=== PATIENT | male | born 1995 | race Caucasian/White ===

== ENCOUNTER 2018-08-23 09:50 | Inpatient (IN) | payer OTHER ==
[2018-08-23 10:31] VITALS: BMI 33.6
--- NOTE | 2018-08-23 10:41 | HP ---
COWS - Scale Resting Pulse: 0= [place] 80 or Below Sweatin= Chills/Flushing Restless Observation: 0= Sits Still Pupil Size: 0= Normal to Room Light Bone or Joint Aches: 1= Mild Discomfort Runny Nose/ Eye Tearin= Runny Nose/Eyes GI Upset > 30mins: 1= Stomach Cramp Tremor Observation: 0= None Yawning Observation: 0= None Anxiety or Irritability: 1=Feels Anxious/Irritable Goose Flesh Skin: 0=Smooth Skin COWS Score: 6 Admission ROS BHS - HPI Allergies/Adverse Reactions: Allergies Allergy/AdvReac Type Severity Reaction Status Date / Time No Known Allergies Allergy Verified 08/23/18 10:33 History of Present Illness: pt here requsting detox from heroin use , reports 1-2 bundles/day IVDU in mina hands, needles from pharmacy , denies sharing , + re-using, denies abscess , denies OD , + use since age 16 , latest use midnight today , appears drowsy, intoxicated upon interview, dozing off frequently , easily awakened , answers questions appropriately. Symptoms as per COWS , VS as recorded . Detox x 3 , most recently 1 mo ago [facility] , has never gone to rehab or outpt program . utox + tomer , opi, oxy christo 0.000 cannabis use : almost daily cocaine / crack cocaine : " as much as I can get " , 1/2 gr oxycodone : admits to use " I like to crush them up and mix then w/ heroin " tobacco : 1/2 ppd , requesting nrt w/ patch . 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 Exam Limitations: Intoxication - Ebola screening Have you traveled outside of the country in the last 21 days: No Have you had contact with anyone from an Ebola affected area: No Have you been sick,other than usual withdrawal symptoms: No Do you have a fever: No - Review of Systems Constitutional: See HPI, Changes in sleep EENT: reports: No Symptoms Reported Respiratory: reports: Wheezing Cardiac: reports: No Symptoms Reported GI: reports: See HPI : reports: No Symptoms Reported Musculoskeletal: reports: Back Pain Integumentary: reports: Other (IVDU) Neuro: reports: See HPI Psychiatric: reports: No Sypmtoms Reported, Judgement Intact, Orientated x3 Other Systems: Reviewed and Negative Patient History - Smoking Cessation Smoking history: Current every day smoker Have you smoked in the past 12 months: Yes Aproximately how many cigarettes per day: 5 Hx Chewing Tobacco Use: No Initiated information on smoking cessation: No Family Disease History - Family Disease History Family History: Unable to Obtain (pt drowsy , intoxicated) Family Disease History: Other: Father (htn ) Admission Physical Exam [facility] - Vital Signs Vital Signs: Vital Signs - 24 hr 08/23/18 10:30 Pulse Rate 71 Respiratory 18 Rate Blood Pressure 125/74 - Physical General Appearance: Yes: Nourished, Disheveled, Mild Distress, Intoxicated, Anxious HEENTM: Yes: EOMI, Hearing grossly Normal, Normal ENT Inspection, Normocephalic , Normal Voice, DARIN, Pharynx Normal Respiratory: Yes: Chest Non-Tender, No Respiratory Distress, No Accessory Muscle Use, Wheezing Neck: Yes: Within Normal Limits, No masses,lesions,Nodules, Trachea in good position Cardiology: Yes: Within Normal Limits, Regular Rhythm, Regular Rate Abdominal: Yes: Within Normal Limits, Normal Bowel Sounds, Non Tender, Flat, Soft Genitourinary: Yes: Within Normal Limits Back: Yes: Within Normal Limits, Normal Inspection Musculoskeletal: Yes: full range of Motion, Pelvis Stable, Back pain Extremities: Yes: Within Normal Limits, Normal Capillary Refill, Normal Inspection, Normal Range of Motion, Non-Tender Neurological: Yes: Motor Strength 5/5, Normal Mood/Affect, Normal Response, Other (drowsy , intoxicated) Integumentary: Yes: Normal Color, Dry, Warm, Track [place] - Diagnostic (1) Opioid dependence Current Visit: Yes Status: Acute Qualifiers: Substance use status: with intoxication Complication of substance-induced condition: with unspecified complication Qualified Code(s): F11.229 - Opioid dependence with intoxication, unspecified [facility] Breath Alcohol Content Breath Alcohol Content: 0 Urine Drug Screen - Results Drug Screen Negative: No Urine Drug Screen Results: TOMER-Cocaine, OPI-Opiates, OXY-Oxycodone
[2018-08-23] MEDS ORDERED: MAGNESIUM HYDROX 2400MG/30ML ORAL SUSPENSION 30 ML CUP PO PRN (10:48)
[2018-08-23] MEDS ORDERED: NICOTINE 7 MG/24 HOURS TOPICAL PATCH TD PRN (10:48)
[2018-08-23] MEDS ORDERED: P-EPHED 60MG/TRIPROLIDI 2.5MG TABLET PO PRN (10:48)
[2018-08-23] MEDS ORDERED: NICOTINE POLACRILEX 2 MG GUM BUC PRN (10:48)
[2018-08-23] MEDS ORDERED: MAGNESIUM CITRATE 300 ML BOTTLE PO PRN (10:48)
[2018-08-23] MEDS ORDERED: MAG HYDROX/AL HYDROX/SIMETH 30 ML UNIT-DOSE CUP PO PRN (10:48)
[2018-08-23] MEDS ORDERED: ALBUTEROL SO4 8 GM HFA INHALER IH PRN (10:53)
[2018-08-23] MEDS: ALBUTEROL SO4 0.083% IH SOL 2.5 MG/3 ML VIAL.NEB. NEB PRN (14:14)
[2018-08-23] MEDS: BACITRACIN/POLYMYXIN B SULFATE 15 GM TUBE TP SCH ×2 (15:08→22:39)
[2018-08-23 17:52] LABS: URINE APPEARANCE SLCLOUDY; URINE BILIRUBIN NEGATIVE (<2.0 mg/dL); URINE COLOR YELLOW; URINE GLUCOSE (UA) NEGATIVE (NEGATIVE); URINE KETONE NEGATIVE (NEGATIVE); URINE LEUK ESTERASE NEGATIVE (NEGATIVE); URINE NITRITE NEGATIVE (NEGATIVE); URINE PROTEIN NEGATIVE (NEGATIVE); URINE UROBILINOGEN NEGATIVE mg/dL (0.2-1.0)
[2018-08-23] MEDS: THIAMINE HCL 100 MG TABLET (FP) PO SCH (22:37)
[2018-08-23] MEDS: MELATONIN 5 MG TABLETS PO PRN (22:38)
[2018-08-23] MEDS ORDERED: METHADONE HCL 10 MG TABLET (FOR DETOX USE ONLY) PO ONE (23:00)
[2018-08-24] MEDS ORDERED: METHADONE HCL 10 MG TABLET (FOR DETOX USE ONLY) PO ONE (10:00)
--- NOTE | 2018-08-24 10:37 | EKG ---
Test Reason : Blood Pressure : / mmHG Vent. Rate : 070 BPM Atrial Rate : 070 BPM P-R Int : 142 ms QRS Dur : 098 ms QT Int : 372 ms P-R-T Axes : 069 076 059 degrees QTc Int : 401 ms NORMAL SINUS RHYTHM NON-SPECIFIC INTRA-VENTRICULAR CONDUCTION DELAY NO PREVIOUS ECGS AVAILABLE Confirmed by EFRAÍN WHITLEY MD ([id number]) on 08/24/2018 10:36:48 AM Referred By: Confirmed By:EFRAÍN WHITLEY MD
[2018-08-24] MEDS: BACITRACIN/POLYMYXIN B SULFATE 15 GM TUBE TP SCH ×2 (10:40→22:30)
[2018-08-24] MEDS: PRENATAL VITAMINS W/ FOLIC ACID TABLET (FP) PO SCH (10:40)
[2018-08-24 11:24] LABS: HEMATOCRIT 36.3 % (35.4-49); HEMOGLOBIN 12.4 GM/dL (11.7-16.9); MCH 29.9 pg (25.7-33.7); MCHC 34.1 g/dl (32.0-35.9); MEAN CELL VOLUME 87.7 fl (80-96); MEAN PLT VOLUME 8.2 fl (7.5-11.1); PLATELET COUNT 261 K/MM3 (134-434); RBC 4.14 M/mm3 (4.00-5.60); WHITE BLOOD COUNT 7.3 K/mm3 (4.0-10.0)
[2018-08-24 11:28] LABS: ALBUMIN 3.6 g/dl (3.4-5.0); ALK PHOS 76 U/L (45-117); ANION GAP 9 MMOL/L (8-16); BILIRUBIN,TOTAL 0.4 mg/dL (0.2-1); BLOOD UREA NITROGEN 18 mg/dL (7-18); CHLORIDE 107 mmol/L (98-107); CO2 26 mmol/L (21-32); CREATININE 0.9 mg/dL (0.55-1.3); GLUCOSE,RANDOM 110 mg/dL (74-106); POTASSIUM 4.1 mmol/L (3.5-5.1); SGOT/AST 21 U/L (15-37); SGPT/ALT 33 U/L (13-61); SODIUM 142 mmol/L (136-145); TOT PROT 7.3 g/dl (6.4-8.2)
--- NOTE | 2018-08-24 14:21 | PN ---
BHS COWS - Scale Resting Pulse: 1= [place] 81-100 Sweatin= Chills/Flushing Restless Observation: 3= Extraneous Movement Pupil Size: 1= Pupils >than Normal Bone or Joint Aches: 2= Severe Diffuse Aches Runny Nose/ Eye Tearin= Runny Nose/Eyes GI Upset > 30mins: 2= Nausea/Diarrhea Tremor Observation of Outstretched Hands: 2= Slight Tremor Visible Yawning Observation: 1= 1-2x During Session Anxiety or Irritability: 2=Irritable/Anxious Goose Flesh Skin: 0=Smooth Skin COWS Score: 17 S Progress Note (SOAP) Subjective: alert,irritable,anxious,interrupted sleep,tremr,pain in the body and back Objective: 08/24/18 14:19 Vital Signs Temperature 98.9 F 08/24/18 11:07 Pulse Rate 87 08/24/18 11:07 Respiratory Rate 18 08/24/18 11:07 Blood Pressure 142/82 08/24/18 11:07 O2 Sat by Pulse Oximetry (%) ekg nsr,normal ecg, qt/qtc 3722/401 Laboratory Last Values WBC 7.3 K/mm3 (4.0-10.0) 08/24/18 06:00 RBC 4.14 M/mm3 (4.00-5.60) 08/24/18 06:00 Hgb 12.4 GM/dL (11.7-16.9) 08/24/18 06:00 Hct 36.3 % (35.4-49) 08/24/18 06:00 MCV 87.7 fl (80-96) 08/24/18 06:00 MCH 29.9 pg (25.7-33.7) 08/24/18 06:00 MCHC 34.1 g/dl (32.0-35.9) 08/24/18 06:00 RDW 14.0 % (11.9-15.9) 08/24/18 06:00 Plt Count 261 K/MM3 (134-434) 08/24/18 06:00 MPV 8.2 fl (7.5-11.1) 08/24/18 06:00 Sodium 142 mmol/L (136-145) 08/24/18 06:00 Potassium 4.1 mmol/L (3.5-5.1) 08/24/18 06:00 Chloride 107 mmol/L (98-107) 08/24/18 06:00 Carbon Dioxide 26 mmol/L (21-32) 08/24/18 06:00 Anion Gap 9 MMOL/L (8-16) 08/24/18 06:00 BUN 18 mg/dL (7-18) 08/24/18 06:00 Creatinine 0.9 mg/dL (0.55-1.3) 08/24/18 06:00 Creat Clearance w eGFR > 60 (>60) 08/24/18 06:00 Random Glucose 110 mg/dL (74-106) H 08/24/18 06:00 Calcium 9.0 mg/dL (8.5-10.1) 08/24/18 06:00 Total Bilirubin 0.4 mg/dL (0.2-1) 08/24/18 06:00 AST 21 U/L (15-37) 08/24/18 06:00 ALT 33 U/L (13-61) 08/24/18 06:00 Alkaline Phosphatase 76 U/L (45-117) 08/24/18 06:00 Total Protein 7.3 g/dl (6.4-8.2) 08/24/18 06:00 Albumin 3.6 g/dl (3.4-5.0) 08/24/18 06:00 Urine Color Yellow 08/23/18 17:00 Urine Appearance Slcloudy 08/23/18 17:00 Urine pH 5.0 (5.0-8.0) 08/23/18 17:00 Ur Specific [place] 1.030 (1.010-1.035) 08/23/18 17:00 Urine Protein Negative (NEGATIVE) 08/23/18 17:00 Urine Glucose (UA) Negative (NEGATIVE) 08/23/18 17:00 Urine Ketones Negative (NEGATIVE) 08/23/18 17:00 Urine Blood Negative (NEGATIVE) 08/23/18 17:00 Urine Nitrite Negative (NEGATIVE) 08/23/18 17:00 Urine Bilirubin Negative (<2.0 mg/dL) 08/23/18 17:00 Urine Urobilinogen Negative mg/dL (0.2-1.0) 08/23/18 17:00 Ur Leukocyte Esterase Negative (NEGATIVE) 08/23/18 17:00 RPR Titer Nonreactive (NONREACTIVE) 08/24/18 06:00 Assessment: 08/24/18 14:21 withdrawal symptom Plan: continue detox
[2018-08-24] MEDS: THIAMINE HCL 100 MG TABLET (FP) PO SCH (22:30)
[2018-08-24] MEDS: MELATONIN 5 MG TABLETS PO PRN (22:30)
[2018-08-24] MEDS: IBUPROFEN 400 MG TABLET (FP) PO PRN (22:31)
[2018-08-25] MEDS: ALBUTEROL SO4 0.083% IH SOL 2.5 MG/3 ML VIAL.NEB. NEB PRN (06:40)
[2018-08-25] MEDS: IBUPROFEN 400 MG TABLET (FP) PO PRN ×2 (07:25→19:29)
[2018-08-25] MEDS: guaiFENesin/D-METHORPHAN HB 10 ML UNIT-DOSE CUPS PO PRN ×2 (07:26→22:05)
[2018-08-25] MEDS: PRENATAL VITAMINS W/ FOLIC ACID TABLET (FP) PO SCH (09:29)
[2018-08-25] MEDS: BACITRACIN/POLYMYXIN B SULFATE 15 GM TUBE TP SCH ×2 (09:30→22:43)
[2018-08-25] MEDS ORDERED: METHADONE HCL 5 MG TABLET (FOR DETOX USE ONLY) PO ONE (10:00)
[2018-08-25] MEDS: ACETAMINOPHEN 325 MG TABLET (FP) PO PRN ×2 (12:47→22:05)
[2018-08-25] MEDS: hydrOXYzine PAMOATE 25 MG CAPSULE (FP) PO PRN ×3 (12:47→22:04)
[2018-08-25] MEDS: MENTHOL/PHENOL 1 EACH UD MM PRN (12:49)
--- NOTE | 2018-08-25 14:33 | PN ---
BHS COWS - Scale Resting Pulse: 0= [place] 80 or Below Sweatin= Chills/Flushing Restless Observation: 3= Extraneous Movement Pupil Size: 1= Pupils >than Normal Bone or Joint Aches: 2= Severe Diffuse Aches Runny Nose/ Eye Tearin= Runny Nose/Eyes GI Upset > 30mins: 3= Vomiting/Diarrhea Tremor Observation of Outstretched Hands: 2= Slight Tremor Visible Yawning Observation: 1= 1-2x During Session Anxiety or Irritability: 2=Irritable/Anxious Goose Flesh Skin: 0=Smooth Skin COWS Score: 17 BHS Progress Note (SOAP) Subjective: Stomach ache, interrupted sleep, sweating Objective: 08/25/18 14:32 Last Vital Signs Temp Pulse Resp BP Pulse Ox 98.6 F 76 18 147/96 08/25/18 14:04 08/25/18 14:04 08/25/18 14:04 08/25/18 14:04 Elevated b/p (denies h/o HTN) Laboratory Tests 08/23/18 08/24/18 08/24/18 17:00 06:00 06:00 WBC 7.3 RBC 4.14 Hgb 12.4 Hct 36.3 MCV 87.7 MCH 29.9 MCHC 34.1 RDW 14.0 Plt Count 261 MPV 8.2 Sodium 142 Potassium 4.1 Chloride 107 Carbon Dioxide 26 Anion Gap 9 BUN 18 Creatinine 0.9 Creat Clearance w eGFR > 60 Random Glucose 110 H Calcium 9.0 Total Bilirubin 0.4 AST 21 ALT 33 Alkaline Phosphatase 76 Total Protein 7.3 Albumin 3.6 Urine Color Yellow Urine Appearance Slcloudy Urine pH 5.0 Ur Specific [place] 1.030 Urine Protein Negative Urine Glucose (UA) Negative Urine Ketones Negative Urine Blood Negative Urine Nitrite Negative Urine Bilirubin Negative Urine Urobilinogen Negative Ur Leukocyte Esterase Negative RPR Titer 08/24/18 06:00 WBC RBC Hgb Hct MCV MCH MCHC RDW Plt Count MPV Sodium Potassium Chloride Carbon Dioxide Anion Gap BUN Creatinine Creat Clearance w eGFR Random Glucose Calcium Total Bilirubin AST ALT Alkaline Phosphatase Total Protein Albumin Urine Color Urine Appearance Urine pH Ur Specific [place] Urine Protein Urine Glucose (UA) Urine Ketones Urine Blood Urine Nitrite Urine Bilirubin Urine Urobilinogen Ur Leukocyte Esterase RPR Titer Nonreactive Labs reviewed Assessment: 08/25/18 14:32 Withdrawal sxs Noted with elevated blood pressure Plan: Continue detox Encouraged PO water intake Elevated blood pressure: clonidine 0.1mg PO q8hr prn, continue to monitor
[2018-08-25] MEDS: MELATONIN 5 MG TABLETS PO PRN (22:04)
[2018-08-25] MEDS: cloNIDine HCL 0.1 MG TABLET PO PRN (22:04)
[2018-08-25] MEDS: THIAMINE HCL 100 MG TABLET (FP) PO SCH (22:04)
[2018-08-26] MEDS: MENTHOL/PHENOL 1 EACH UD MM PRN (05:21)
[2018-08-26] MEDS ORDERED: METHADONE HCL 10 MG TABLET (FOR DETOX USE ONLY) PO ONE (10:00)
[2018-08-26] MEDS: ACETAMINOPHEN 325 MG TABLET (FP) PO PRN (10:10)
[2018-08-26] MEDS: BACITRACIN/POLYMYXIN B SULFATE 15 GM TUBE TP SCH ×2 (10:10→23:48)
[2018-08-26] MEDS: hydrOXYzine PAMOATE 25 MG CAPSULE (FP) PO PRN ×2 (10:10→23:15)
[2018-08-26] MEDS: PRENATAL VITAMINS W/ FOLIC ACID TABLET (FP) PO SCH (10:10)
--- NOTE | 2018-08-26 10:16 | PN ---
[facility] Progress Note Note: Vital Signs Temperature 98.9 F 08/26/18 09:16 Pulse Rate 96 H 08/26/18 09:16 Respiratory Rate 20 08/26/18 09:16 Blood Pressure 136/90 08/26/18 09:16 O2 Sat by Pulse Oximetry (%) Laboratory Last Values WBC 7.3 K/mm3 (4.0-10.0) 08/24/18 06:00 RBC 4.14 M/mm3 (4.00-5.60) 08/24/18 06:00 Hgb 12.4 GM/dL (11.7-16.9) 08/24/18 06:00 Hct 36.3 % (35.4-49) 08/24/18 06:00 MCV 87.7 fl (80-96) 08/24/18 06:00 MCH 29.9 pg (25.7-33.7) 08/24/18 06:00 MCHC 34.1 g/dl (32.0-35.9) 08/24/18 06:00 RDW 14.0 % (11.9-15.9) 08/24/18 06:00 Plt Count 261 K/MM3 (134-434) 08/24/18 06:00 MPV 8.2 fl (7.5-11.1) 08/24/18 06:00 Sodium 142 mmol/L (136-145) 08/24/18 06:00 Potassium 4.1 mmol/L (3.5-5.1) 08/24/18 06:00 Chloride 107 mmol/L (98-107) 08/24/18 06:00 Carbon Dioxide 26 mmol/L (21-32) 08/24/18 06:00 Anion Gap 9 MMOL/L (8-16) 08/24/18 06:00 BUN 18 mg/dL (7-18) 08/24/18 06:00 Creatinine 0.9 mg/dL (0.55-1.3) 08/24/18 06:00 Creat Clearance w eGFR > 60 (>60) 08/24/18 06:00 Random Glucose 110 mg/dL (74-106) H 08/24/18 06:00 Calcium 9.0 mg/dL (8.5-10.1) 08/24/18 06:00 Total Bilirubin 0.4 mg/dL (0.2-1) 08/24/18 06:00 AST 21 U/L (15-37) 08/24/18 06:00 ALT 33 U/L (13-61) 08/24/18 06:00 Alkaline Phosphatase 76 U/L (45-117) 08/24/18 06:00 Total Protein 7.3 g/dl (6.4-8.2) 08/24/18 06:00 Albumin 3.6 g/dl (3.4-5.0) 08/24/18 06:00 Urine Color Yellow 08/23/18 17:00 Urine Appearance Slcloudy 08/23/18 17:00 Urine pH 5.0 (5.0-8.0) 08/23/18 17:00 Ur Specific [place] 1.030 (1.010-1.035) 08/23/18 17:00 Urine Protein Negative (NEGATIVE) 08/23/18 17:00 Urine Glucose (UA) Negative (NEGATIVE) 08/23/18 17:00 Urine Ketones Negative (NEGATIVE) 08/23/18 17:00 Urine Blood Negative (NEGATIVE) 08/23/18 17:00 Urine Nitrite Negative (NEGATIVE) 08/23/18 17:00 Urine Bilirubin Negative (<2.0 mg/dL) 08/23/18 17:00 Urine Urobilinogen Negative mg/dL (0.2-1.0) 08/23/18 17:00 Ur Leukocyte Esterase Negative (NEGATIVE) 08/23/18 17:00 RPR Titer Nonreactive (NONREACTIVE) 08/24/18 06:00 c/o of low back pain, interrupted sleep, chills Aox3 no distress no adventitious breath sounds Full ROM , ambulating in the unit, + back pain withdrawal sx continue detox increase fluids TP lidocaine patch continue to monitor
[2018-08-26] MEDS ORDERED: COLLOIDAL OATMEAL 1 BAR EACH TP PRN (14:04)
[2018-08-26] MEDS: guaiFENesin/D-METHORPHAN HB 10 ML UNIT-DOSE CUPS PO PRN (21:18)
[2018-08-26] MEDS: IBUPROFEN 400 MG TABLET (FP) PO PRN (21:18)
[2018-08-26] MEDS: THIAMINE HCL 100 MG TABLET (FP) PO SCH (23:13)
[2018-08-26] MEDS: cloNIDine HCL 0.1 MG TABLET PO PRN (23:15)
[2018-08-27] MEDS: guaiFENesin/D-METHORPHAN HB 10 ML UNIT-DOSE CUPS PO PRN (05:51)
[2018-08-27] MEDS ORDERED: METHADONE HCL 5 MG TABLET (FOR DETOX USE ONLY) PO ONE (06:00)
[2018-08-27 06:28] VITALS: BP 119/72; PULSE 61; TEMP 97.3
[2018-08-27] MEDS: IBUPROFEN 400 MG TABLET (FP) PO PRN (09:07)
[2018-08-27] MEDS: PRENATAL VITAMINS W/ FOLIC ACID TABLET (FP) PO SCH (09:07)
[2018-08-27] MEDS: BACITRACIN/POLYMYXIN B SULFATE 15 GM TUBE TP SCH (09:08)
[2018-08-27] MEDS: MENTHOL/PHENOL 1 EACH UD MM PRN (09:08)
--- NOTE | 2018-08-27 11:17 | DS ---
[facility] Detox Discharge Summary Admission Date: 08/23/18 Discharge Date: 08/27/18 - History Present History: Opioid Dependence - Physical Exam Results Vital Signs: Vital Signs Temperature 97.3 F L 08/27/18 06:27 Pulse Rate 61 08/27/18 06:27 Respiratory Rate 18 08/27/18 06:27 Blood Pressure 119/72 08/27/18 06:27 O2 Sat by Pulse Oximetry (%) Pertinent Admission Physical Exam Findings: PATIENT TOLERATED DETOX WITHOUT ADVERSE EVENT AND D/C HOME. PATIENT CLINICALLY STABLE. DENIES SI/HI. PATIENT ENCOURAGE TO ATTEND GROUP MEETINGS OUTPATIENT TO PREVENT RELAPSE AND TO SEEK MEDICAL ATTENTION IF WITHDRAWALS SYMPTOMS OCCUR. PATIENT GIVEN D/C INSTRUCTIONS BY STAFF. - Treatment Hospital Course: Detox Protocol Followed, Detoxed Safely, Responded well, Discharged Condition Good - Medication Discharge Medications: Ambulatory Orders Albuterol Sulfate Inhaler - [Ventolin Hfa Inhaler -] 2 inh PO Q4H PRN 08/23/18 Albuterol Sulfate Inhaler - [Ventolin HFA Inhaler -] 2 puff IH Q4H PRN #1 inhaler 08/26/18 - AMA Did Patient Leave Against Medical Advice: No
== END 2018-08-27 09:22 | disposition home or self-care (01) | DRG 773 ==
LOC: YASAS 09:50 → Y3N 13:21
PROC: HZ2ZZZZ Detoxification Services for Substance Abuse Treatment (ICD-10-PCS; principal; 2018-08-23)
DX: F11.23 Opioid dependence with withdrawal (principal); F14.20 Cocaine dependence, uncomplicated; F17.210 Nicotine dependence, cigarettes, uncomplicated; J45.909 Unspecified asthma, uncomplicated; R03.0 Elevated blood-pressure reading, without diagnosis of hypertension; Z59.0 Homelessness
CPT/HCPCS: 36415; 80053; 81003; 85027; 86593; 93005; 93010; 94640; J0735